=== PATIENT | male | born 2000 | race Caucasian/White ===

== ENCOUNTER 2020-09-11 01:09 | Emergency (ER) | payer OTHER ==
[2020-09-11 01:19] VITALS: RESP 18; TEMP 97.9
--- NOTE | 2020-09-11 01:36 | ED ---
General Adult HPI - General Chief complaint: Recheck/Abnormal Lab/Rx Stated complaint: SOB Time Seen by Provider: 09/11/20 01:21 Source: patient Mode of arrival: ambulatory Limitations: no limitations - History of Present Illness Initial comments: This patient is a 19-year-old man who presents to be evaluated for symptoms that is been going back for a couple of months. The patient states that he will have a feeling like he is falling though he is not. Also feeling somewhat lightheaded and anxious. At times he is convinced that he is not going to be able to breathe. The symptoms are intermittent but seem to be occurring more frequently. They sometimes come on after eating or after he does smoke marijuana, but he states the symptoms did not always produces symptoms. -: month(s) Consistency: intermittent Improves with: none Worsens with: eating, other Associated Symptoms: other Treatments Prior to Arrival: none - Related Data Allergies Allergy/AdvReac Type Severity Reaction Status Date / [facility] Allergy Unknown Verified 09/11/20 01:12 Review of Systems ROS Statement: Those systems with pertinent positive or pertinent negative responses have been documented in the HPI. ROS Other: All systems not noted in ROS Statement are negative. Constitutional: Denies: fever, chills, weakness Eyes: Denies: vision change Respiratory: Denies: cough, dyspnea, wheezes Cardiovascular: Denies: chest pain, palpitations, syncope Gastrointestinal: Denies: abdominal pain, nausea, vomiting Genitourinary: Denies: dysuria, hematuria Musculoskeletal: Denies: back pain Skin: Denies: rash Neurological: Reports: other. Denies: headache, weakness, numbness Psychiatric: Reports: anxiety Past Medical History Past Medical History: No Reported History History of Any Multi-Drug Resistant Organisms: None Reported Past Surgical History: No Surgical Hx Reported Past Psychological History: Anxiety, Depression Smoking Status: Current every day smoker Past Alcohol Use History: Occasional Past Drug Use History: Marijuana General Exam Limitations: no limitations General appearance: alert, in no apparent distress Head exam: Present: atraumatic, normocephalic, normal inspection Eye exam: Present: normal appearance. Absent: scleral icterus, conjunctival injection ENT exam: Present: normal oropharynx Neck exam: Present: normal inspection Respiratory exam: Present: normal lung sounds bilaterally. Absent: respiratory distress, wheezes, rales, rhonchi, stridor Cardiovascular Exam: Present: regular rate, normal rhythm, systolic murmur (2/6 KYLE). Absent: diastolic murmur, rubs, gallop GI/Abdominal exam: Present: soft. Absent: distended, tenderness, guarding, rebound, rigid, mass Extremities exam: Present: normal inspection, normal capillary refill. Absent: pedal edema, calf tenderness Back exam: Present: normal inspection Neurological exam: Present: alert, normal gait Psychiatric exam: Present: anxious. Absent: depressed, agitated, homicidal ideation, suicidal ideation Skin exam: Present: warm, dry, intact, normal color. Absent: rash Course Vital Signs 09/11/20 09/11/20 01:12 02:19 Temperature 97.9 F Pulse Rate 84 71 Respiratory 18 18 Rate Blood Pressure 130/70 137/83 O2 Sat by Pulse 98 96 Oximetry Medical Decision Making - Lab Data Result diagrams: 09/11/20 01:45 09/11/20 01:45 Lab Results 09/11/20 09/11/20 09/11/20 Range/Units 01:44 01:45 01:45 WBC 9.5 (4.0-11.0) k/uL RBC 4.79 (4.30-5.90) m/uL Hgb 15.7 (13.0-17.5) gm/dL Hct 43.6 (39.0-53.0) % MCV 90.9 (80.0-100.0) fL MCH 32.8 (25.0-35.0) pg MCHC 36.0 (31.0-37.0) g/dL RDW 12.3 (11.5-15.5) % Plt Count 201 (150-450) k/uL MPV 8.0 Neutrophils % 63 % Lymphocytes % 23 % Monocytes % 7 % Eosinophils % 5 % Basophils % 1 % Neutrophils # 6.0 (1.3-7.7) k/uL Lymphocytes # 2.2 (1.0-4.8) k/uL Monocytes # 0.7 (0-1.0) k/uL Eosinophils # 0.5 (0-0.7) k/uL Basophils # 0.1 (0-0.2) k/uL Sodium 139 (137-145) mmol/L Potassium 3.7 (3.5-5.1) mmol/L Chloride 102 (98-107) mmol/L Carbon Dioxide 28 (22-30) mmol/L Anion Gap 9 mmol/L BUN 16 (9-20) mg/dL Creatinine 0.76 (0.66-1.25) mg/dL Est GFR (CKD-EPI)AfAm >90 (>60 ml/min/1.73 sqM) Est GFR (CKD-EPI)NonAf >90 (>60 ml/min/1.73 sqM) Glucose 95 (74-99) mg/dL Calcium 9.4 (8.4-10.2) mg/dL Magnesium 2.1 (1.6-2.3) mg/dL Total Bilirubin 0.5 (0.2-1.3) mg/dL AST 36 (17-59) U/L ALT 44 (4-49) U/L Alkaline Phosphatase 79 (38-126) U/L Total Protein 7.4 (6.3-8.2) g/dL Albumin 4.5 (3.5-5.0) g/dL Urine Color Yellow Urine Appearance Clear (Clear) Urine pH 6.0 (5.0-8.0) Ur Specific [place] 1.033 (1.001-1.035) Urine Protein Trace H (Negative) Urine Glucose (UA) Negative (Negative) Urine Ketones Trace H (Negative) Urine Blood Negative (Negative) Urine Nitrite Negative (Negative) Urine Bilirubin Negative (Negative) Urine Urobilinogen 2.0 (<2.0) mg/dL Ur Leukocyte Esterase Negative (Negative) Urine Opiates Screen Not Detected (NotDetected) Ur Oxycodone Screen Not Detected (NotDetected) Urine Methadone Screen Not Detected (NotDetected) Ur Propoxyphene Screen Not Detected (NotDetected) Ur Barbiturates Screen Not Detected (NotDetected) U Tricyclic Antidepress Not Detected (NotDetected) Ur Phencyclidine Scrn Not Detected (NotDetected) Ur Amphetamines Screen Not Detected (NotDetected) U Methamphetamines Scrn Not Detected (NotDetected) U Benzodiazepines Scrn Not Detected (NotDetected) Urine Cocaine Screen Not Detected (NotDetected) U Marijuana (THC) Screen Detected H (NotDetected) Disposition Clinical Impression: Anxiety Disposition: HOME SELF-CARE Condition: Good Instructions (If sedation given, give patient instructions): Generalized Anxiety Disorder (ED) Additional Instructions: As we discussed, follow-up with with your physician to see about having an echocardiogram Is patient prescribed a controlled substance at d/c from ED?: No Referrals: None,Stated [Primary Care Provider] - 1-2 days Waqar Godwin [STAFF PHYSICIAN] - 1-2 days
[2020-09-11 02:11] LABS: Basophils # (A) 0.1 k/uL (0-0.2); Basophils % (A) 1 %; Eosinophils # (A) 0.5 k/uL (0-0.7); Eosinophils % (A) 5 %; HCT 43.6 % (39.0-53.0); HGB 15.7 gm/dL (13.0-17.5); Lymphocytes # (A) 2.2 k/uL (1.0-4.8); Lymphocytes % (A) 23 %; MCH 32.8 pg (25.0-35.0); MCV 90.9 fL (80.0-100.0); Monocytes # (A) 0.7 k/uL (0-1.0); Monocytes % (A) 7 %; Neutrophils % (A) 63 %; Platelet Count 201 k/uL (150-450); RBC 4.79 m/uL (4.30-5.90); RDW 12.3 % (11.5-15.5); WBC 9.5 k/uL (4.0-11.0)
[2020-09-11 02:24] LABS: ALT 44 U/L (4-49); African American GFR (CKD) >90 (>60 ml/min/1.73 sqM); Albumin 4.5 g/dL (3.5-5.0); Anion Gap 9 mmol/L; Blood Urea Nitrogen 16 mg/dL (9-20); Calcium 9.4 mg/dL (8.4-10.2); Carbon Dioxide 28 mmol/L (22-30); Chloride 102 mmol/L (98-107); Glucose 95 mg/dL (74-99); Non-African American GFR(CKD) >90 (>60 ml/min/1.73 sqM); Sodium 139 mmol/L (137-145); Total Bilirubin 0.5 mg/dL (0.2-1.3); Total Protein 7.4 g/dL (6.3-8.2)
[2020-09-11 02:27] LABS: AST 36 U/L (17-59); Alkaline Phosphatase 79 U/L (38-126); Magnesium 2.1 mg/dL (1.6-2.3); Potassium 3.7 mmol/L (3.5-5.1)
[2020-09-11 02:41] VITALS: BP 137/83; PULSE 71
[2020-09-11 02:49] LABS: Amphetamine Screen,Urine Not Detected (NotDetected); Barbiturate Screen,Urine Not Detected (NotDetected); Benzodiazepines Screen,Urine Not Detected (NotDetected); Cocaine Screen,Urine Not Detected (NotDetected); Methadone Screen, Urine Not Detected (NotDetected); Opiate Screen,Urine Not Detected (NotDetected); Oxycodone Screen, Urine Not Detected (NotDetected); Phencyclidine Screen,Urine Not Detected (NotDetected); Tricyclic Antidepressant,Urine Not Detected (NotDetected); Urn Cannabinoid Scrn Detected (NotDetected)
[2020-09-11 02:57] LABS: Appearance,Urine Clear (Clear); Bilirubin,Urine Negative (Negative); Blood,Urine Negative (Negative); Color,Urine Yellow; Glucose,Urine (UA) Negative (Negative); Ketones,Urine Trace (Negative); Leukocyte Esterase,Urine Negative (Negative); Nitrite,Urine Negative (Negative); Protein,Urine Trace (Negative); Specific Gravity,Urine 1.033 (1.001-1.035)
[2020-09-11] MEDS ORDERED: MAG HYDROX/AL HYDROX/SIMETH 30 ML, HYOSCYAMINE ELIXIR 10 ML, LIDOCAINE VISCOUS 2% 10 ML PO STA ×3 (03:20)
== END 2020-09-11 04:18 | disposition home or self-care (01) ==
LOC: EC 01:09
DX: F41.9 Anxiety disorder, unspecified (principal); F12.90 Cannabis use, unspecified, uncomplicated; F17.200 Nicotine dependence, unspecified, uncomplicated; Z88.8 Allergy status to other drugs, medicaments and biological substances
CPT/HCPCS: 36415; 80053; 80306; 81003; 83735; 85025; 99284

== ENCOUNTER 2020-09-26 | Emergency (ER) | payer OTHER | END 2020-09-26 04:00 | disposition left against medical advice (07) | CPT/HCPCS: 93005; 99499 ==

== ENCOUNTER 2020-10-01 14:52 | Emergency (ER) | payer OTHER ==
[2020-10-01 15:03] VITALS: TEMP 98.3
[2020-10-01 15:27] LABS: Glucose,Whole Blood 85 mg/dL (75-99)
--- NOTE | 2020-10-01 15:32 | ED ---
General Adult HPI - General Chief complaint: Dizziness Stated complaint: lightheaded/weakness Time Seen by Provider: 10/01/20 15:03 Source: patient Mode of arrival: ambulatory Limitations: no limitations - History of Present Illness Initial comments: 19-year-old male with a past medical history of asthma presents to the emergency room for a chief complaint of concern for diabetes. Patient states for several months he has been concerned that he has diabetes. States when he eats a lot of food at once he feels that his heart races. States that his mother told him that when he was born a digital not icteric in and thought he was predisposed to diabetes. 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 States that he wasnt feeling well at work and felt weak. He presented to the emergency room to be evaluated for bakari salcedo.patient denies excessive thirst, excessive urination. Patient has no other complaints at this time including shortness of breath, chest pain, abdominal pain, nausea or vomiting, headache, or visual changes. - Related Data Home Medications Medication Instructions Recorded Confirmed No Known Home Medications 09/26/20 09/26/20 Allergies Allergy/AdvReac Type Severity Reaction Status Date / Time cetirizine [From [facility]] Allergy Unknown Verified 10/01/20 15:02 Review of Systems ROS Statement: Those systems with pertinent positive or pertinent negative responses have been documented in the HPI. ROS Other: All systems not noted in ROS Statement are negative. Past Medical History Past Medical History: Asthma History of Any Multi-Drug Resistant Organisms: None Reported Past Surgical History: No Surgical Hx Reported Past Psychological History: Anxiety, Depression Smoking Status: Current every day smoker Past Alcohol Use History: Occasional Past Drug Use History: Marijuana General Exam Limitations: no limitations General appearance: alert, in no apparent distress Head exam: Present: atraumatic, normocephalic, normal inspection Eye exam: Present: normal appearance, PERRL, EOMI. Absent: scleral icterus, conjunctival injection, periorbital swelling ENT exam: Present: normal exam, mucous membranes moist Neck exam: Present: normal inspection. Absent: tenderness, meningismus, lymphadenopathy Respiratory exam: Present: normal lung sounds bilaterally. Absent: respiratory distress, wheezes, rales, rhonchi, stridor Cardiovascular Exam: Present: regular rate, normal rhythm, normal heart sounds. Absent: systolic murmur, diastolic murmur, rubs, gallop, clicks GI/Abdominal exam: Present: soft, normal bowel sounds. Absent: distended, tenderness, guarding, rebound, rigid Course Vital Signs 10/01/20 14:59 Temperature 98.3 F Pulse Rate 71 Respiratory 22 Rate Blood Pressure 132/76 O2 Sat by Pulse 95 Oximetry Medical Decision Making - Medical Decision Making Vitals are stable. Patient's blood sugar is 85. He is not tachypneic or tachycardic. I suspect patient felt weak today because it is 330 pm and he has not had anything substantial to eat and drank caffeine. Patient did feel better after eating a sandwich in the emergency room. Patient also reports he has been anxious. States that he thinks this could be contributing. He denies any suicidal or homicidal thoughts. I did give patient referrals to outpatient counselors he can talk to. I also gave him several primary care referrals. Discussed returning if he has any worsening symptoms. - Lab Data Lab Results 10/01/20 Range/Units 15:25 POC Glucose (mg/dL) 85 (75-99) mg/dL POC Glu Rocket Assembly Operator ID Venkatesh Calix Disposition Clinical Impression: Normal glucose level, Anxiety Disposition: HOME SELF-CARE Condition: Good Instructions (If sedation given, give patient instructions): Shopping for a Healthy Diet (ED), Generalized Anxiety Disorder (ED) Additional Instructions: Please follow up with primary care. Follow [facility] with [facility] for symptoms of anxiety as well. Return to the ER for any worsening symptoms. Is patient prescribed a controlled substance at d/c from ED?: No Referrals: Beverley Alonso MD [STAFF PHYSICIAN] - 1-2 days Fausto Rizzo III, MD [STAFF PHYSICIAN] - 1-2 days Vicky Lester MD [STAFF PHYSICIAN] - 1-2 days Benita Nassar DO [REFERRING] - 1-2 days Time of Disposition: 15:56
[2020-10-01 16:16] VITALS: BP 132/60; PULSE 77; RESP 20
== END 2020-10-01 16:16 | disposition home or self-care (01) ==
LOC: EC 14:52
DX: F41.9 Anxiety disorder, unspecified (principal); J45.909 Unspecified asthma, uncomplicated; F17.200 Nicotine dependence, unspecified, uncomplicated; F32.9 Major depressive disorder, single episode, unspecified
CPT/HCPCS: 36415; 99284

== ENCOUNTER 2020-10-31 22:33 | Emergency (ER) | payer OTHER ==
[2020-10-31 22:43] VITALS: BP 119/74; PULSE 84; RESP 18; TEMP 98.6
--- NOTE | 2020-10-31 23:39 | XR ---
EXAMINATION TYPE: XR chest 2V DATE OF EXAM: 10/31/2020 COMPARISON: NONE HISTORY: Chest pain TECHNIQUE: 2 views FINDINGS: Heart and mediastinum are normal. Lungs are clear. Diaphragm is normal. Bony thorax is inta ct. Pulmonary vascularity is normal. IMPRESSION: Normal chest. Normal heart.
[2020-11-01] MEDS ORDERED: hydrOXYzine pamoate 25 MG CAP PO STA (00:12)
--- NOTE | 2020-11-01 00:12 | ED ---
General Adult HPI - General Chief complaint: Chest Pain Stated complaint: chest pain, dizziness Time Seen by Provider: 10/31/20 22:44 Source: patient Mode of arrival: wheelchair Limitations: no limitations - History of Present Illness Initial comments: 19 year-old male patient presents to the emergency department for evaluation of chest tightness and dizziness. Patient states he has been having symptoms for months. States that he has been here a few times for similar symptoms and told it was possibly anxiety. He states that symptoms usually start at night. Denies any known exacerbating fractures. States he has not followed up for this because he cannot find a doctor to take his insurance. He denies any fainting. Denies family history of unexplained or at a young age without known cause. Denies any family history of heart problems. Denies alcohol or drug use. Denies nausea, vomiting, or diarrhea. Patient denies any recent rash, fever, chills, cough, abdominal pain, constipation, back pain, numbness, tingling, hematuria, dysuria, urinary urgency, urinary frequency, headache, visual changes, or any other complaints. - Related Data Previous Rx's Medication Instructions Recorded hydrOXYzine pamoate [Vistaril] 25 mg PO HS PRN #14 cap 11/01/20 Allergies Allergy/AdvReac Type Severity Reaction Status Date / [facility]ergy Unknown Verified 10/31/20 23:06 Review of Systems ROS Statement: Those systems with pertinent positive or pertinent negative responses have been documented in the HPI. ROS Other: All systems not noted in ROS Statement are negative. Past Medical History Past Medical History: Asthma History of Any Multi-Drug Resistant Organisms: None Reported Past Surgical History: No Surgical Hx Reported Past Psychological History: Anxiety, Depression Smoking Status: Current every day smoker, Vaper Past Alcohol Use History: Occasional Past Drug Use History: Marijuana General Exam Limitations: no limitations General appearance: alert, in no apparent distress, other Respiratory exam: Present: normal lung sounds bilaterally. Absent: respiratory distress, wheezes, rales, rhonchi, stridor Cardiovascular Exam: Present: regular rate, normal rhythm, normal heart sounds. Absent: systolic murmur, diastolic murmur, rubs, gallop, clicks GI/Abdominal exam: Present: soft, normal bowel sounds. Absent: distended, tenderness, guarding, rebound, rigid Neurological exam: Present: alert, oriented X3, CN II-XII intact Psychiatric exam: Present: normal affect, normal mood Skin exam: Present: warm, dry, intact, normal color. Absent: rash Course Vital Signs 10/31/20 22:40 Temperature 98.6 F Pulse Rate 84 Respiratory 18 Rate Blood Pressure 119/74 O2 Sat by Pulse 98 Oximetry EKG Findings - EKG Comments: EKG Findings:: EKG obtained at 2246 shows normal sinus rhythm with a ventricular rate of 82, AL interval 154, QRS duration 96, QT 374, QTC 436. No evidence of ST elevation or depression. Medical Decision Making - Medical Decision Making 19-year-old male patient presents to the emergency department today for evaluation of chest tightness and dizzy feeling. States he feels like his body is moving without actual moving. Physical examination is unremarkable. Lungs are clear to auscultation with good air movement. EKG was unremarkable. Chest x-ray negative. Patient has been worked up within the last couple of months for similar symptoms here. States he does feel this way every day. We'll try giving prescription for Vistaril to see this will help with symptoms. He is discharged with instructions to call his insurance come in after a list of providers to accept his insurance. Return parameters were discussed in detail. He verbalizes understanding and agree with this plan. Case discussed with my attending Dr. Vera. - Radiology Data Radiology results: report reviewed, image reviewed Normal chest. Normal heart. Disposition Clinical Impression: Chest pain Disposition: HOME SELF-CARE Condition: Good Instructions (If sedation given, give patient instructions): Chest Pain (ED) Additional Instructions: Call your insurance company to get a list of providers in the area that are covered by your insurance. Return to the emergency department for any new, worsening, or concerning symptoms. Prescriptions: hydrOXYzine pamoate [Vistaril] 25 mg PO HS PRN #14 cap PRN Reason: Anxiety Is patient prescribed a controlled substance at d/c from ED?: No Referrals: None,Stated [Primary Care Provider] - 1-2 days Time of Disposition: 00:12
== END 2020-11-01 00:37 | disposition home or self-care (01) ==
LOC: EC 22:33
DX: R07.9 Chest pain, unspecified (principal); J45.909 Unspecified asthma, uncomplicated; F17.200 Nicotine dependence, unspecified, uncomplicated; F32.9 Major depressive disorder, single episode, unspecified; F12.90 Cannabis use, unspecified, uncomplicated
CPT/HCPCS: 71046; 99285

== ENCOUNTER 2020-11-29 03:02 | Emergency (ER) | payer OTHER ==
[2020-11-29 03:11] VITALS: BP 128/82; PULSE 66; RESP 18; TEMP 98.4
[2020-11-29] MEDS ORDERED: KETOROLAC 15 MG/ML 1 ML VIAL IM STA (03:37)
[2020-11-29] MEDS ORDERED: diazePAM 5 MG TAB PO STA (03:37)
[2020-11-29] MEDS ORDERED: PROCHLORPERAZINE 5 MG TAB PO STA (03:37)
[2020-11-29] MEDS ORDERED: diphenhydrAMINE 25 MG CAP PO STA (03:37)
--- NOTE | 2020-11-29 03:38 | ED ---
Dizziness HPI - General Chief Complaint: Dizziness Stated Complaint: Dizziness, Anxiety Time Seen by Provider: 11/29/20 03:04 Source: patient Mode of arrival: ambulatory - Related Data Previous Rx's Medication Instructions Recorded hydrOXYzine pamoate [Vistaril] 25 mg PO HS PRN #14 cap 11/01/20 Allergies Allergy/AdvReac Type Severity Reaction Status Date / Time cetirizine [From [facility]] Allergy Unknown Verified 11/29/20 03:11 Review of Systems ROS Statement: Those systems with pertinent positive or pertinent negative responses have been documented in the HPI. ROS Other: All systems not noted in ROS Statement are negative. Past Medical History Past Medical History: Asthma History of Any Multi-Drug Resistant Organisms: None Reported Past Surgical History: No Surgical Hx Reported Past Psychological History: Anxiety, Depression Smoking Status: Current every day smoker, Vaper Past Alcohol Use History: Occasional Past Drug Use History: Marijuana Course Vital Signs 11/29/20 03:07 Temperature 98.4 F Pulse Rate 66 Respiratory 18 Rate Blood Pressure 128/82 O2 Sat by Pulse 98 Oximetry Disposition Clinical Impression: Headache, Chest pain, Acute anxiety, Dizziness Disposition: HOME SELF-CARE Condition: Good Instructions (If sedation given, give patient instructions): Dizziness (ED) Is patient prescribed a controlled substance at d/c from ED?: No Referrals: None,Stated [Primary Care Provider] - 1-2 days
== END 2020-11-29 04:19 | disposition home or self-care (01) ==
LOC: EC 03:02
DX: F41.9 Anxiety disorder, unspecified (principal); R42 Dizziness and giddiness; R07.9 Chest pain, unspecified; R51.9 Headache, unspecified; J45.909 Unspecified asthma, uncomplicated; F32.9 Major depressive disorder, single episode, unspecified; F17.200 Nicotine dependence, unspecified, uncomplicated; F12.90 Cannabis use, unspecified, uncomplicated; Z79.899 Other long term (current) drug therapy
CPT/HCPCS: 99283; S0183

== ENCOUNTER 2020-12-25 23:25 | Emergency (ER) | payer OTHER ==
[2020-12-25 23:35] VITALS: RESP 18
--- NOTE | 2020-12-26 00:38 | ED ---
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 Fall Witnessed: no Place Fall Occurred: home Loss of Consciousness: none Prolonged Down Time?: no Symptoms Prior to Fall: none Location: head Severity: moderate Severity scale (1-10): 4 Quality: dull, aching Context: tripped/slipped Associated Symptoms: denies - Related Data Previous Rx's Medication Instructions Recorded hydrOXYzine pamoate [Vistaril] 25 mg PO HS PRN #14 cap 11/01/20 Allergies Allergy/AdvReac Type Severity Reaction Status Date / Time cetirizine [From [facility]] Allergy Unknown Verified 12/25/20 23:35 Review of Systems ROS Statement: Those systems with pertinent positive or pertinent negative responses have been documented in the HPI. ROS Other: All systems not noted in ROS Statement are negative. Past Medical History Past Medical History: Asthma History of Any Multi-Drug Resistant Organisms: None Reported Past Surgical History: No Surgical Hx Reported Past Psychological History: Anxiety, Depression Smoking Status: Current every day smoker Past Alcohol Use History: Occasional Past Drug Use History: Marijuana General Exam Limitations: no limitations General appearance: alert, in no apparent distress Head exam: Present: atraumatic, normocephalic, normal inspection Eye exam: Present: normal appearance, PERRL, EOMI. Absent: scleral icterus, conjunctival injection, periorbital swelling ENT exam: Present: normal exam, mucous membranes moist Neck exam: Present: normal inspection. Absent: tenderness, meningismus, lymphadenopathy Respiratory exam: Present: normal lung sounds bilaterally. Absent: respiratory distress, wheezes, rales, rhonchi, stridor Cardiovascular Exam: Present: regular rate, normal rhythm, normal heart sounds. Absent: systolic murmur, diastolic murmur, rubs, gallop, clicks GI/Abdominal exam: Present: soft, normal bowel sounds. Absent: distended, tenderness, guarding, rebound, rigid Extremities exam: Present: normal inspection, full ROM, normal capillary refill. Absent: tenderness, pedal edema, joint swelling, calf tenderness Back exam: Present: normal inspection Neurological exam: Present: alert, oriented X3, CN II-XII intact Psychiatric exam: Present: normal affect, normal mood Skin exam: Present: warm, dry, intact, normal color. Absent: rash Course Vital Signs 12/25/20 23:32 Temperature 98.2 F Pulse Rate 82 Respiratory 18 Rate Blood Pressure 136/77 O2 Sat by Pulse 98 Oximetry - Reevaluation(s) Reevaluation #1: 12/26/20 01:34 Medical record is reviewed Reevaluation #2: 12/26/20 01:34 Patient is in no acute distress Reevaluation #3: 12/26/20 01:34 Reassessed with no persistent nausea vomiting, no neurological deficits Medical Decision Making - Medical Decision Making 20-year-old male DEL with fall with head injury, contusion, minor concussion. Patient can be discharged home - Radiology Data Radiology results: report reviewed (CT brain is negative for acute disease), image reviewed Disposition Clinical Impression: Headache, Closed head injury, Concussion without loss of consciousness, Fall Disposition: HOME SELF-CARE Condition: Good Instructions (If sedation given, give patient instructions): Concussion (ED) Is patient prescribed a controlled substance at d/c from ED?: No Referrals: None,Stated [Primary Care Provider] - 1-2 days
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
[2020-12-26 02:03] VITALS: BP 135/77; PULSE 79; TEMP 98.1
== END 2020-12-26 02:02 | disposition home or self-care (01) ==
LOC: EC 23:25
DX: S06.0X0A Concussion without loss of consciousness, initial encounter (principal); J45.909 Unspecified asthma, uncomplicated; F32.9 Major depressive disorder, single episode, unspecified; F41.9 Anxiety disorder, unspecified; F12.90 Cannabis use, unspecified, uncomplicated; F17.200 Nicotine dependence, unspecified, uncomplicated; W01.198A Fall on same level from slipping, tripping and stumbling with subsequent striking against other object, initial encounter; Y92.009 Unspecified place in unspecified non-institutional (private) residence as the place of occurrence of the external cause
CPT/HCPCS: 70450; 72125; 99284

== ENCOUNTER 2021-02-09 05:01 | Emergency (ER) | payer OTHER ==
--- NOTE | 2021-02-09 05:21 | ED ---
Anxiety HPI - General Chief Complaint: Anxiety Stated Complaint: Anxiety Time Seen by Provider: 02/09/21 05:03 Source: patient, RN notes reviewed, old records reviewed Mode of arrival: ambulatory - History of Present Illness Initial Comments: This is a 20-year-old male to the ER for management of his anxiety severe anxiety. History of anxiety. Patient has no significant stressor denies drugs or alcohol but feels significant inability to control is racing thoughts in his mind currently. Very agitated, shaking and anxious. Not homicidal or suicidal MD Complaint: anxiety -: hour(s) Symptoms: dyspnea, chest pain, palpitations, perioral numbness/tingling, sense of impending doom Place: home Previous History of Same: Yes Severity: moderate Quality: similar to prior episodes Provoking factors: none known Improves With: nothing Worsens With: nothing Associated symptoms: other (none) - Related Data Home Medications: Previous Rx's Medication Instructions Recorded hydrOXYzine pamoate [Vistaril] 25 mg PO HS PRN #14 cap 11/01/20 Diazepam [Valium] 5 mg PO Q8H PRN 3 Days #9 tab 02/09/21 Allergies/Adverse Reactions: Allergies Allergy/AdvReac Type Severity Reaction Status Date / Time cetirizine [From Zyrtec] Allergy Unknown Verified 02/09/21 05:11 Review of Systems ROS Statement: Those systems with pertinent positive or pertinent negative responses have been documented in the HPI. ROS Other: All systems not noted in ROS Statement are negative. Past Medical History Past Medical History: Asthma Additional Past Medical History / Comment(s): anxiety History of Any Multi-Drug Resistant Organisms: None Reported Past Surgical History: No Surgical Hx Reported Past Psychological History: Anxiety, Depression Smoking Status: Current every day smoker Past Alcohol Use History: Occasional Past Drug Use History: Marijuana General Exam General appearance: alert, in no apparent distress Head exam: Present: atraumatic, normocephalic, normal inspection Eye exam: Present: normal appearance, PERRL, EOMI. Absent: scleral icterus, conjunctival injection, periorbital swelling ENT exam: Present: normal exam, mucous membranes moist Neck exam: Present: normal inspection. Absent: tenderness, meningismus, lymphadenopathy Respiratory exam: Present: normal lung sounds bilaterally. Absent: respiratory distress, wheezes, rales, rhonchi, stridor Cardiovascular Exam: Present: regular rate, normal rhythm, normal heart sounds. Absent: systolic murmur, diastolic murmur, rubs, gallop, clicks GI/Abdominal exam: Present: soft, normal bowel sounds. Absent: distended, tenderness, guarding, rebound, rigid Extremities exam: Present: normal inspection, full ROM, normal capillary refill. Absent: tenderness, pedal edema, joint swelling, calf tenderness Back exam: Present: normal inspection Neurological exam: Present: alert, oriented X3, CN II-XII intact Psychiatric exam: Present: normal affect, normal mood Skin exam: Present: warm, dry, intact, normal color. Absent: rash Course Vital Signs 02/09/21 02/09/21 05:08 05:28 Temperature 98.2 F 98.4 F Pulse Rate 82 80 Respiratory 22 20 Rate Blood Pressure 133/74 147/76 O2 Sat by Pulse 98 97 Oximetry - Reevaluation(s) Reevaluation #1: 02/09/21 05:39 Medical record is reviewed Reevaluation #2: 02/09/21 05:39 Symptoms are strictly improved, patient feels better Reevaluation #3: 02/09/21 05:39 Patient informed results and feels comfortable for discharge home Medical Decision Making - Medical Decision Making 20 male to the emergency department for evaluation patient be discharged home to follow-up with primary care Disposition Clinical Impression: Acute anxiety, Panic attack Disposition: HOME SELF-CARE Condition: Good Instructions (If sedation given, give patient instructions): Generalized Anxiety Disorder (ED) Prescriptions: Diazepam [Valium] 5 mg PO Q8H PRN 3 Days #9 tab PRN Reason: Anxiety Is patient prescribed a controlled substance at d/c from ED?: No Referrals: None,Stated [Primary Care Provider] - 1-2 days
[2021-02-09 05:33] VITALS: BP 147/76; PULSE 80; RESP 20; TEMP 98.4
[2021-02-09] MEDS ORDERED: diazePAM 5 MG TAB PO STA (05:35)
--- NOTE | 2021-02-09 05:41 | ED ---
Medical Decision Making - Medical Decision Making addendum for follow up PCP Disposition Clinical Impression: Acute anxiety, Panic attack Disposition: HOME SELF-CARE Condition: Good Instructions (If sedation given, give patient instructions): Generalized Anxiety Disorder (ED) Prescriptions: Diazepam [Valium] 5 mg PO Q8H PRN 3 Days #9 tab PRN Reason: Anxiety Is patient prescribed a controlled substance at d/c from ED?: Yes When asked, does pt state using other controlled substances?: No If prescribed controlled substance>3 days was MAPS reviewed?: Prescribed <3 Days If opioid is for acute pain is fill amount 7 days or less?: No If Rx opioid, was Start Talking consent form obtained?: No Referrals: Wu Esquivel MD [STAFF PHYSICIAN] - 1-2 days Kike Huynh MD [Medical Doctor] - 1-2 days
== END 2021-02-09 05:54 | disposition home or self-care (01) ==
LOC: EC 05:01
DX: F41.0 Panic disorder [episodic paroxysmal anxiety] (principal); F17.200 Nicotine dependence, unspecified, uncomplicated; J45.909 Unspecified asthma, uncomplicated; Z88.8 Allergy status to other drugs, medicaments and biological substances
CPT/HCPCS: 99284

== ENCOUNTER 2021-02-18 04:06 | Emergency (ER) | payer OTHER ==
[2021-02-18 04:14] VITALS: RESP 18; TEMP 98
[2021-02-18] MEDS ORDERED: ONDANSETRON 4 MG/2 ML VIAL IVP STA (04:28)
[2021-02-18] MEDS ORDERED: SODIUM CHLORIDE 0.9% 500 ML 500 ML IV STA (04:28)
[2021-02-18] MEDS ORDERED: LORazepam 2 MG/ML INJ IV STA (04:29)
--- NOTE | 2021-02-18 04:30 | ED ---
Anxiety HPI - General Chief Complaint: Arrhythmia/Palpitations Stated Complaint: Arrhythmia Time Seen by Provider: 02/18/21 04:11 Source: patient, RN notes reviewed, old records reviewed Mode of arrival: ambulatory - History of Present Illness Initial Comments: This is a [id number] male to the ER for evaluation of palpitations elevated heart rate. This anxiety. Patient has history of anxiety. No travel history no sick contacts no fevers does admit to marijuana use. Patient states his heart rate feels improved currently MD Complaint: anxiety, heart racing -: hour(s) Symptoms: dyspnea, chest pain, palpitations Place: home Previous History of Same: Yes Severity: moderate Quality: intermittent Provoking factors: none known Worsens With: nothing Associated symptoms: chest pain, shortness of breath, palpitations - Related Data Home Medications: Previous Rx's Medication Instructions Recorded hydrOXYzine pamoate [Vistaril] 25 mg PO HS PRN #14 cap 11/01/20 Diazepam [Valium] 5 mg PO Q8H PRN 3 Days #9 tab 02/09/21 Allergies/Adverse Reactions: Allergies Allergy/AdvReac Type Severity Reaction Status Date / Time cetirizine [From Zyrte] Allergy Unknown Verified 02/18/21 04:14 Review of Systems ROS Statement: Those systems with pertinent positive or pertinent negative responses have been documented in the HPI. ROS Other: All systems not noted in ROS Statement are negative. Past Medical History Past Medical History: Asthma Additional Past Medical History / Comment(s): anxiety History of Any Multi-Drug Resistant Organisms: None Reported Past Surgical History: No Surgical Hx Reported Past Psychological History: Anxiety, Depression Smoking Status: Current every day smoker Past Alcohol Use History: Occasional Past Drug Use History: Marijuana General Exam Limitations: no limitations General appearance: anxious Head exam: Present: atraumatic, normocephalic, normal inspection Eye exam: Present: normal appearance, PERRL, EOMI. Absent: scleral icterus, conjunctival injection, periorbital swelling ENT exam: Present: normal exam, mucous membranes moist Neck exam: Present: normal inspection. Absent: tenderness, meningismus, lymphadenopathy Respiratory exam: Present: normal lung sounds bilaterally. Absent: respiratory distress, wheezes, rales, rhonchi, stridor Cardiovascular Exam: Present: regular rate, normal rhythm, normal heart sounds. Absent: systolic murmur, diastolic murmur, rubs, gallop, clicks GI/Abdominal exam: Present: soft, normal bowel sounds. Absent: distended, tenderness, guarding, rebound, rigid Extremities exam: Present: normal inspection, full ROM, normal capillary refill. Absent: tenderness, pedal edema, joint swelling, calf tenderness Back exam: Present: normal inspection Neurological exam: Present: alert, oriented X3, CN II-XII intact Psychiatric exam: Present: normal affect, normal mood Skin exam: Present: warm, dry, intact, normal color. Absent: rash Course Vital Signs 02/18/21 02/18/21 04:11 06:37 Temperature 98.0 F Pulse Rate 71 84 Respiratory 18 18 Rate Blood Pressure 111/66 121/64 O2 Sat by Pulse 98 97 Oximetry - Reevaluation(s) Reevaluation #1: Medical record is reviewed Patient symptoms improved here in the ER Patient informed results and questions answered Patient is in no acute distress Medical Decision Making - Medical Decision Making 20 male D to the emergency department EL with anxiety-induced palpitations and tachycardia. Symptoms resolved here in the ER, no distress patient can be discharged home - Lab Data Result diagrams: 02/18/21 05:26 02/18/21 05:26 Lab Results 02/18/21 02/18/21 02/18/21 Range/Units 05:26 05:26 05:26 WBC 8.4 (4.0-11.0) k/uL RBC 5.09 (4.30-5.90) m/uL Hgb 16.2 (13.0-17.5) gm/dL Hct 45.5 (39.0-53.0) % MCV 89.4 (80.0-100.0) fL MCH 31.8 (25.0-35.0) pg MCHC 35.6 (31.0-37.0) g/dL RDW 11.9 (11.5-15.5) % Plt Count 232 (150-450) k/uL MPV 7.9 Neutrophils % 58 % Lymphocytes % 29 % Monocytes % 6 % Eosinophils % 6 % Basophils % 0 % Neutrophils # 4.9 (1.3-7.7) k/uL Lymphocytes # 2.4 (1.0-4.8) k/uL Monocytes # 0.5 (0-1.0) k/uL Eosinophils # 0.5 (0-0.7) k/uL Basophils # 0.0 (0-0.2) k/uL PT 10.3 (9.0-12.0) sec INR 1.0 (<1.2) APTT 24.6 (22.0-30.0) sec D-Dimer <0.17 (<0.60) mg/L FEU Sodium 141 (137-145) mmol/L Potassium 4.1 (3.5-5.1) mmol/L Chloride 104 (98-107) mmol/L Carbon Dioxide 26 (22-30) mmol/L Anion Gap 11 mmol/L BUN 15 (9-20) mg/dL Creatinine 0.79 (0.66-1.25) mg/dL Est GFR (CKD-EPI)AfAm >90 (>60 ml/min/1.73 sqM) Est GFR (CKD-EPI)NonAf >90 (>60 ml/min/1.73 sqM) Glucose 98 (74-99) mg/dL Calcium 10.1 (8.4-10.2) mg/dL Phosphorus 3.9 (2.5-4.5) mg/dL Magnesium 2.0 (1.6-2.3) mg/dL Total Bilirubin 0.7 (0.2-1.3) mg/dL AST 30 (17-59) U/L ALT 34 (4-49) U/L Alkaline Phosphatase 82 (38-126) U/L Troponin I (0.000-0.034) ng/mL NT-Pro-B Natriuret Pep pg/mL Total Protein 7.2 (6.3-8.2) g/dL Albumin 4.3 (3.5-5.0) g/dL TSH 0.800 (0.465-4.680) mIU/L 02/18/21 02/18/21 Range/Units 05:26 05:26 WBC (4.0-11.0) k/uL RBC (4.30-5.90) m/uL Hgb (13.0-17.5) gm/dL Hct (39.0-53.0) % MCV (80.0-100.0) fL MCH (25.0-35.0) pg MCHC (31.0-37.0) g/dL RDW (11.5-15.5) % Plt Count (150-450) k/uL MPV Neutrophils % % Lymphocytes % % Monocytes % % Eosinophils % % Basophils % % Neutrophils # (1.3-7.7) k/uL Lymphocytes # (1.0-4.8) k/uL Monocytes # (0-1.0) k/uL Eosinophils # (0-0.7) k/uL Basophils # (0-0.2) k/uL PT (9.0-12.0) sec INR (<1.2) APTT (22.0-30.0) sec D-Dimer (<0.60) mg/L FEU Sodium (137-145) mmol/L Potassium (3.5-5.1) mmol/L Chloride (98-107) mmol/L Carbon Dioxide (22-30) mmol/L Anion Gap mmol/L BUN (9-20) mg/dL Creatinine (0.66-1.25) mg/dL Est GFR (CKD-EPI)AfAm (>60 ml/min/1.73 sqM) Est GFR (CKD-EPI)NonAf (>60 ml/min/1.73 sqM) Glucose (74-99) mg/dL Calcium (8.4-10.2) mg/dL Phosphorus (2.5-4.5) mg/dL Magnesium (1.6-2.3) mg/dL Total Bilirubin (0.2-1.3) mg/dL AST (17-59) U/L ALT (4-49) U/L Alkaline Phosphatase (38-126) U/L Troponin I <0.012 (0.000-0.034) ng/mL NT-Pro-B Natriuret Pep 23 pg/mL Total Protein (6.3-8.2) g/dL Albumin (3.5-5.0) g/dL TSH (0.465-4.680) mIU/L - EKG Data -: EKG Interpreted by Me (EKG shows sinus rhythm 63 OR 158 QRS 90 QTC 413) - Radiology Data Radiology results: report reviewed (Chest x-rays negative for acute disease), image reviewed Disposition Clinical Impression: Acute anxiety, Palpitations Disposition: HOME SELF-CARE Condition: Good Instructions (If sedation given, give patient instructions): Heart Palpitations (ED) Is patient prescribed a controlled substance at d/c from ED?: No Referrals: None,Stated [Primary Care Provider] - 1-2 days
--- NOTE | 2021-02-18 04:52 | XR ---
EXAMINATION TYPE: XR chest 2V DATE OF EXAM: 02/18/2021 COMPARISON: 10/31/2020 HISTORY: Weakness TECHNIQUE: 2 views FINDINGS: Heart and mediastinum are normal. Lungs are clear. Diaphragm is normal. Bony thorax is inta ct. Pulmonary vascularity is normal. IMPRESSION: Normal chest. No change.
[2021-02-18 05:42] LABS: Basophils % (A) 0 %; Eosinophils # (A) 0.5 k/uL (0-0.7); Eosinophils % (A) 6 %; HCT 45.5 % (39.0-53.0); HGB 16.2 gm/dL (13.0-17.5); Lymphocytes # (A) 2.4 k/uL (1.0-4.8); Lymphocytes % (A) 29 %; MCH 31.8 pg (25.0-35.0); MCHC 35.6 g/dL (31.0-37.0); MCV 89.4 fL (80.0-100.0); Mean Platelet Volume 7.9; Monocytes # (A) 0.5 k/uL (0-1.0); Monocytes % (A) 6 %; Neutrophils # (A) 4.9 k/uL (1.3-7.7); Neutrophils % (A) 58 %; Platelet Count 232 k/uL (150-450); RBC 5.09 m/uL (4.30-5.90); RDW 11.9 % (11.5-15.5); WBC 8.4 k/uL (4.0-11.0)
[2021-02-18 05:59] LABS: ALT 34 U/L (4-49); AST 30 U/L (17-59); African American GFR (CKD) >90 (>60 ml/min/1.73 sqM); Albumin 4.3 g/dL (3.5-5.0); Alkaline Phosphatase 82 U/L (38-126); Anion Gap 11 mmol/L; Blood Urea Nitrogen 15 mg/dL (9-20); Calcium 10.1 mg/dL (8.4-10.2); Carbon Dioxide 26 mmol/L (22-30); Chloride 104 mmol/L (98-107); Glucose 98 mg/dL (74-99); Non-African American GFR(CKD) >90 (>60 ml/min/1.73 sqM); Phosphorus 3.9 mg/dL (2.5-4.5); Potassium 4.1 mmol/L (3.5-5.1); Sodium 141 mmol/L (137-145); Total Bilirubin 0.7 mg/dL (0.2-1.3); Total Protein 7.2 g/dL (6.3-8.2)
[2021-02-18 06:04] LABS: Partial Thromboplastin Time 24.6 sec (22.0-30.0); Prothrombin Time 10.3 sec (9.0-12.0)
[2021-02-18 06:40] VITALS: BP 121/64; PULSE 84
== END 2021-02-18 06:40 | disposition home or self-care (01) ==
LOC: EC 04:06
DX: R00.2 Palpitations (principal); R07.9 Chest pain, unspecified; R06.02 Shortness of breath; R00.0 Tachycardia, unspecified; J45.909 Unspecified asthma, uncomplicated; F41.9 Anxiety disorder, unspecified; F17.200 Nicotine dependence, unspecified, uncomplicated
CPT/HCPCS: 93005; 85379; 83880; 80053; 83735; 84100; 84443; 84484; 85025; 85610; 85730; 71046; 99285; 96374; 96375; 96361; J2060; J2405

== ENCOUNTER 2021-07-11 18:34 | Emergency (ER) | payer OTHER ==
[2021-07-11 18:40] VITALS: BP 128/67; PULSE 68; RESP 18; TEMP 98.4
[2021-07-11] MEDS ORDERED: LORazepam 1 MG TAB PO STA (18:56)
--- NOTE | 2021-07-11 19:18 | ED ---
Anxiety HPI - General Chief Complaint: Anxiety Stated Complaint: Mental Health Time Seen by Provider: 07/11/21 18:44 Source: patient, RN notes reviewed Mode of arrival: ambulatory - History of Present Illness Initial Comments: This is a pleasant 20-year-old male with a history of anxiety and depression. Patient states he's been here several times since August of last year for similar symptomology. He states it feels like he gets a strange feeling in his chest and has racing heartbeat. He then gets strange feeling in both hands. Patient states she previously been diagnosed with anxiety/panic attacks. Patient previously was treated with antidepressants in the form of Cymbalta. However due to insurance reasons he's been unable to obtain a regular physician here. No headache, no fever or chills, no changes in vision or hearing, no sore throat or difficulty with speech, no neck pain, no shortness of breath, no abdominal pain, no nausea or vomiting, no changes in urination or bowel movements, no numbness or tingling, no extremity pain, no skin rashes or lesions. MD Complaint: anxiety - Related Data Home Medications: Previous Rx's Medication Instructions Recorded busPIRone HCl [Buspar] 10 mg PO Q12H PRN #15 tab 07/11/21 Allergies/Adverse Reactions: Allergies Allergy/AdvReac Type Severity Reaction Status Date / Time cetirizine [From [facility]] Allergy Unknown Verified 07/11/21 19:09 Review of Systems ROS Statement: Those systems with pertinent positive or pertinent negative responses have been documented in the HPI. ROS Other: All systems not noted in ROS Statement are negative. Past Medical History Past Medical History: Asthma Additional Past Medical History / Comment(s): anxiety History of Any Multi-Drug Resistant Organisms: None Reported Past Surgical History: No Surgical Hx Reported Past Psychological History: Anxiety, Depression Smoking Status: Current every day smoker Past Alcohol Use History: Occasional Past Drug Use History: Marijuana General Exam - General Exam Comments Initial Comments: Patient appears to be mildly anxious but not toxic. Does not appear to be ill. Limitations: no limitations General appearance: alert, in no apparent distress Head exam: Present: atraumatic, normocephalic, normal inspection Eye exam: Present: normal appearance, PERRL, EOMI. Absent: scleral icterus, conjunctival injection, periorbital swelling ENT exam: Present: normal exam, mucous membranes moist Neck exam: Present: normal inspection. Absent: tenderness, meningismus, lymphadenopathy Respiratory exam: Present: normal lung sounds bilaterally. Absent: respiratory distress, wheezes, rales, rhonchi, stridor Cardiovascular Exam: Present: regular rate, normal rhythm, normal heart sounds. Absent: systolic murmur, diastolic murmur, rubs, gallop, clicks GI/Abdominal exam: Present: soft, normal bowel sounds. Absent: distended, tende rness, guarding, rebound, rigid Extremities exam: Present: normal inspection, full ROM, normal capillary refill. Absent: tenderness, pedal edema, joint swelling, calf tenderness Back exam: Present: normal inspection Neurological exam: Present: alert, oriented X3, CN II-XII intact Psychiatric exam: Present: normal affect, anxious. Absent: depressed, agitated, flat affect, manic, homicidal ideation, suicidal ideation Skin exam: Present: warm, dry, intact, normal color. Absent: rash Course Vital Signs 07/11/21 18:38 Temperature 98.4 F Pulse Rate 68 Respiratory 18 Rate Blood Pressure 128/67 O2 Sat by Pulse 96 Oximetry Medical Decision Making - Medical Decision Making Patient presented with recurrent anxiety. Patient denies any suicidal or homicidal ideation. We'll treat with anxiolytics short course of outpatient anxiolytics. We'll have the patient follow-up with on-call family practice physician. I did tell the patient to call his insurance company to see the nearest primary care physician that will except as insurance. Patient voices understanding. Patient was told to return to the ER for any signs or symptoms worsen. Told to return immediately if any other problems arise. All questions answered. Treatment plan discussed. Patient in agreement - EKG Data EKG Comments: EKG done at 1908 and read by the ED attending physician reveals normal sinus rhythm with a rate of 65. No acute changes. Normal intervals. Normal axis. Disposition Clinical Impression: Panic attack, Acute anxiety Disposition: HOME SELF-CARE Condition: Good Instructions (If sedation given, give patient instructions): Generalized Anxiety Disorder (ED) Additional Instructions: Patient call your insurance company and try to find a primary care physician that we'll take your insurance. He can try the physician that I have provided for review as well. Follow-up with your regular physician as directed. Return to the ER immediately if any symptoms worsen, new symptoms arise, or any other problems develop. Prescriptions: busPIRone HCl [Buspar] 10 mg PO Q12H PRN #15 tab PRN Reason: Anxiety Is patient prescribed a controlled substance at d/c from ED?: No Referrals: Waqar Godwin [STAFF PHYSICIAN] - 1-2 days Time of Disposition: 19:17
== END 2021-07-11 19:54 | disposition home or self-care (01) ==
LOC: EC 18:34
DX: F41.0 Panic disorder [episodic paroxysmal anxiety] (principal); F32.A Depression, unspecified; F17.200 Nicotine dependence, unspecified, uncomplicated; F12.90 Cannabis use, unspecified, uncomplicated; Z79.899 Other long term (current) drug therapy
CPT/HCPCS: 93005; 99283

== ENCOUNTER 2021-07-18 | Emergency (ER) | payer OTHER ==
[2021-07-18 00:05] VITALS: BP 140/88; PULSE 60; RESP 16; TEMP 98.1
--- NOTE | 2021-07-18 00:40 | ED ---
Chest Pain HPI - General Chief Complaint: Chest Pain Stated Complaint: Chest Pain Time Seen by Provider: 07/18/21 00:10 Source: patient, RN notes reviewed Mode of arrival: ambulatory Limitations: no limitations - History of Present Illness Initial Comments: This is a pleasant 20-year-old male with a history of anxiety and recurrent chest discomfort. Patient presents to the emergency department today stating that he tested positive for COVID-19 last Friday. He started getting chest discomfort yesterday. He states the chest discomfort is different from his usual anxiety attacks. Patient has had a cough which is nonproductive. Patient also stated he had a fever a few days ago. Patient does have a history of asthma. He does smoke cigarettes. No other illicit drug abuse. No headache, no fever or chills, no changes in vision or hearing, no sore throat or difficulty with speech, no neck pain, no chest pain or shortness of breath, no abdominal pain, no nausea or vomiting, no changes in urination or bowel movements, no numbness or tingling, no extremity pain, no skin rashes or lesions. MD Complaint: chest pain - Related Data Previous Rx's Medication Instructions Recorded busPIRone HCl [Buspar] 10 mg PO Q12H PRN #15 tab 07/11/21 Acetaminophen [Tylenol] 500 mg PO Q4-6H PRN #24 tab 07/18/21 Naproxen [Naprosyn] 375 mg PO Q12HR PRN #20 tablet 07/18/21 Allergies Allergy/AdvReac Type Severity Reaction Status Date / Time cetirizine [From Zyrtec] Allergy Unknown Verified 07/18/21 00:05 Review of Systems ROS Statement: Those systems with pertinent positive or pertinent negative responses have been documented in the HPI. ROS Other: All systems not noted in ROS Statement are negative. EKG Findings - EKG Results: EKG: interpreted by ERMD, sinus rhythm, normal axis, normal QRS, normal ST/T, no acute changes (Rate 67, sinus arrhythmia) EKG shows: sinus rhythm Past Medical History Past Medical History: Asthma Additional Past Medical History / Comment(s): anxiety History of Any Multi-Drug Resistant Organisms: None Reported Past Surgical History: No Surgical Hx Reported Past Psychological History: Anxiety, Depression Smoking Status: Current every day smoker Past Alcohol Use History: Occasional Past Drug Use History: Marijuana General Exam Limitations: no limitations General appearance: alert, in no apparent distress Head exam: Present: atraumatic, normocephalic, normal inspection Eye exam: Present: normal appearance, PERRL, EOMI. Absent: scleral icterus, conjunctival injection, periorbital swelling ENT exam: Present: normal exam, mucous membranes moist Neck exam: Present: normal inspection, full ROM. Absent: tenderness, meningismus, lymphadenopathy Respiratory exam: Present: normal lung sounds bilaterally, chest wall tenderness. Absent: respiratory distress, wheezes, rales, rhonchi, stridor, accessory muscle use Cardiovascular Exam: Present: regular rate, normal rhythm, normal heart sounds. Absent: systolic murmur, diastolic murmur, rubs, gallop, clicks GI/Abdominal exam: Present: soft, normal bowel sounds. Absent: distended, tenderness, guarding, rebound, rigid Extremities exam: Present: normal inspection, full ROM, normal capillary refill. Absent: tenderness, pedal edema, joint swelling, calf tenderness Back exam: Present: normal inspection Neurological exam: Present: alert, oriented X3, CN II-XII intact Psychiatric exam: Present: normal affect, normal mood Skin exam: Present: warm, dry, intact, normal color. Absent: rash Course Vital Signs 07/18/21 00:02 Temperature 98.1 F Pulse Rate 60 Respiratory 16 Rate Blood Pressure 140/88 O2 Sat by Pulse 99 Oximetry - Reevaluation(s) Reevaluation #1: 07/18/21 01:57 Medical record is reviewed Symptoms are improved here in the emergency department Patient is informed of results and questions answered Patient in no distress Chest Pain MDM - MDM Suspected the patient symptomology is related to COVID-19. Patient PERC is 0. The patient's age and EKG findings, patient's heart score is 0. Given the patient's age, I believe cardiac etiology is unlikely. Although the patient recently had COVID-19, myocarditis is within the differential. We'll obtain cardiac enzymes plus a CK. Given the patient's vital signs, pulmonary embolism unlikely. We'll run a d-dimer due to the hypercoagulability of COVID-19 patients. More consistent with musculoskeletal chest syndrome and anxiety related symptoms. Less likely to be secondary pneumonia The case was discussed in detail with ED attending physician. Presentation, findings, treatment plan discussed in detail. Discussed smoking cessation Follow-up with your regular physician as directed. Return to the ER immediately if any symptoms worsen, new symptoms arise, or any other problems develop. Disposition Clinical Impression: Acute chest wall pain, COVID-19, Acute anxiety, Cigarette smoker Disposition: HOME SELF-CARE Condition: Good Instructions (If sedation given, give patient instructions): Coronavirus Disease 2019 (COVID-19), Chest Wall Pain (ED), Anxiety (ED), How to Stop Smoking (ED) Additional Instructions: Follow-up with your regular physician as directed. Return to the ER immediately if any symptoms worsen, new symptoms arise, or any other problems develop. SELF QUARANTINE DISCHARGE: As you are at risk for symptoms due to coronavirus, please stay home and stay away from others as much as possible. Please maintain social distance of 6 feet if possible. You should not return to work until at least 3 days (72 hours) have passed since recovery of symptoms. This defined as resolution of fever without the use of fever reducing medicines and improvement in respiratory symptoms (e.g,, cough, shortness of breath) Isolation can end at least 5 days after symptom onset and after fever ends for 24 hours (without the use of fever-reducing medication) and symptoms are improving, if these people can continue to properly wear a well-fitted mask around others for 5 more days after the 5-day isolation period. If you're still having symptoms at the end of 5 day period, isolate for an additional 5 days. More information about what to do if you are sick can be found on the CDC website at https://www.cdc.gov/coronavirus/2019-ncov/kh-kot-ncu-sick/abhcu-bmbb-rzxr.html Expect the symptoms to last for 7-14 days from onset. Use acetaminophen (Tylenol) as needed for discomfort. You can take a maximum of 1 gram every 6 hours for discomfort, with your total dose in 24 hours not exceeding 4 grams. Be sure to maintain hydration. Drink continuous water and/or items high in vitamin C, such as orange juice and/or lemonade. Unless you have high blood pressure, you may consider Sudafed (which is [id number]) for nasal congestion. I would suggest that a short acting Sudafed rather than the 24 hour Sudafed. For a cough you may take Mucinex or Robitussin. Also consider the use of Vicks Vapor Rub or your chest when you sleep. Use a humidifier that is cleaned frequently, in the bedroom at night. For Nausea /Vomiting/Diarrhea associated with your Illness: o Small frequent sips of room temperature liquids. o Diet: Divide Foods - If you are still experiencing discomfort and/or nausea please slowly advancing your diet using the BRAT Diet = bananas, rice, apples/apple sauce, toast. o With diarrhea avoid any dairy for 48 hours after symptoms resolved. o Continue with activity as tolerated. If your symptoms do get worse and you believe that the upper respiratory infection has developed into something else, such as pneumonia or severe dehydration, please return to the emergency department or follow-up with your primary care. But expect to be symptomatic for the days as indicated above Prescriptions: Naproxen [Naprosyn] 375 mg PO Q12HR PRN #20 tablet PRN Reason: Pain Acetaminophen [Tylenol] 500 mg PO Q4-6H PRN #24 tab PRN Reason: Pain Is patient prescribed a controlled substance at d/c from ED?: No Referrals: Waqar Godwin [STAFF PHYSICIAN] - 07/20/21 Time of Disposition: 01:58
--- NOTE | 2021-07-18 01:01 | XR ---
EXAMINATION TYPE: XR chest 2V DATE OF EXAM: 07/18/2021 COMPARISON: 02/18/2021 HISTORY: Weakness TECHNIQUE: 2 views FINDINGS: Heart and mediastinum are normal. Lungs are clear. Diaphragm is normal. Bony thorax is inta ct. IMPRESSION: Normal chest. No change.
[2021-07-18 01:30] LABS: Basophils # (A) 0.1 k/uL (0-0.2); Basophils % (A) 1 %; Eosinophils # (A) 0.4 k/uL (0-0.7); Eosinophils % (A) 6 %; HCT 42.7 % (39.0-53.0); HGB 15.1 gm/dL (13.0-17.5); Lymphocytes % (A) 33 %; MCH 32.1 pg (25.0-35.0); MCHC 35.4 g/dL (31.0-37.0); MCV 90.5 fL (80.0-100.0); Mean Platelet Volume 7.8; Monocytes # (A) 0.3 k/uL (0-1.0); Monocytes % (A) 6 %; Neutrophils # (A) 3.2 k/uL (1.3-7.7); Neutrophils % (A) 53 %; Platelet Count 210 k/uL (150-450); RBC 4.72 m/uL (4.30-5.90); RDW 12.1 % (11.5-15.5)
[2021-07-18 01:39] LABS: African American GFR (CKD) >90 (>60 ml/min/1.73 sqM); Anion Gap 9 mmol/L; Blood Urea Nitrogen 14 mg/dL (9-20); Calcium 9.5 mg/dL (8.4-10.2); Carbon Dioxide 27 mmol/L (22-30); Chloride 103 mmol/L (98-107); Creatine Kinase 98 U/L (55-170); Glucose 93 mg/dL (74-99); Non-African American GFR(CKD) >90 (>60 ml/min/1.73 sqM); Potassium 3.9 mmol/L (3.5-5.1); Sodium 139 mmol/L (137-145)
== END 2021-07-18 02:26 | disposition home or self-care (01) ==
LOC: EC
DX: U07.1 COVID-19 (principal); F41.9 Anxiety disorder, unspecified; F17.210 Nicotine dependence, cigarettes, uncomplicated; J45.909 Unspecified asthma, uncomplicated; F12.90 Cannabis use, unspecified, uncomplicated; F32.A Depression, unspecified; Z79.899 Other long term (current) drug therapy
CPT/HCPCS: 36415; 71046; 80048; 82550; 83735; 84484; 85025; 85379; 93005; 99285

== ENCOUNTER 2021-07-29 07:15 | Emergency (ER) | payer OTHER ==
[2021-07-29 07:25] VITALS: TEMP 97.2
[2021-07-29] MEDS ORDERED: LORazepam 1 MG TAB PO STA (07:42)
--- NOTE | 2021-07-29 07:54 | ED ---
Anxiety HPI - General Chief Complaint: Anxiety Stated Complaint: Anxiety Time Seen by Provider: 07/29/21 07:31 Source: patient Mode of arrival: ambulatory - History of Present Illness Initial Comments: This is a 20 year old male with a PMHx of anxiety who reports to the emergency department for a reported panic attack. States that he has been having these almost daily for the past year. This one began about 4 hours ago and he has not been able to settle down, so he came to the emergency department. Nothing provoked this panic attack which is usually the case. He recently found a primary care provider who he saw one week ago. He had previously been unable to find one that will accept his insurance. 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 He is hoping to find a natural alternative. Denies any suicidal or homicidal ideations. Describes his panic a ttacks as chest pressure, shortness of breath, and feelings of impending doom. Symptoms are the same each time. MD Complaint: anxiety Onset/Timin -: hour(s) Place: home Quality: constant, similar to prior episodes Provoking factors: none known Improves With: nothing Associated symptoms: chest pain, shortness of breath, palpitations - Related Data Home Medications: Previous Rx's Medication Instructions Recorded busPIRone HCl [Buspar] 10 mg PO Q12H PRN #15 tab 07/11/21 Acetaminophen [Tylenol] 500 mg PO Q4-6H PRN #24 tab 07/18/21 Naproxen [Naprosyn] 375 mg PO Q12HR PRN #20 tablet 07/18/21 Allergies/Adverse Reactions: Allergies Allergy/AdvReac Type Severity Reaction Status Date / Time cetirizine [From [facility]] Allergy Unknown Verified 07/29/21 07:25 Review of Systems ROS Statement: Those systems with pertinent positive or pertinent negative responses have been documented in the HPI. ROS Other: All systems not noted in ROS Statement are negative. Constitutional: Denies: fever, chills Respiratory: Reports: dyspnea. Denies: cough Cardiovascular: Reports: chest pain, palpitations Gastrointestinal: Denies: abdominal pain, nausea, vomiting, diarrhea Genitourinary: Denies: urgency, dysuria Musculoskeletal: Denies: back pain Skin: Denies: rash, lesions Neurological: Denies: headache, weakness Psychiatric: Reports: anxiety. Denies: depression, auditory hallucinations, visual hallucinations, homicidal thoughts, suicidal thoughts Past Medical History Past Medical History: Asthma Additional Past Medical History / Comment(s): anxiety History of Any Multi-Drug Resistant Organisms: None Reported Past Surgical History: No Surgical Hx Reported Past Psychological History: Anxiety, Depression Smoking Status: Current every day smoker Past Alcohol Use History: Occasional Past Drug Use History: Marijuana General Exam Limitations: no limitations General appearance: alert, anxious, other (pacing around the room) Head exam: Present: atraumatic, normocephalic, normal inspection Respiratory exam: Present: normal lung sounds bilaterally. Absent: respiratory distress, wheezes, rales, rhonchi, stridor Cardiovascular Exam: Present: regular rate, normal rhythm, normal heart sounds. Absent: systolic murmur, diastolic murmur, rubs, gallop, clicks Neurological exam: Present: alert, oriented X3, CN II-XII intact Psychiatric exam: Present: anxious. Absent: homicidal ideation, suicidal ideation Skin exam: Present: warm, dry, intact, normal color. Absent: rash Course Vital Signs 07/29/21 07/29/21 07:22 09:49 Temperature 97.2 F L Pulse Rate 80 72 Respiratory 24 18 Rate Blood Pressure 124/66 120/60 O2 Sat by Pulse 97 Oximetry - Reevaluation(s) Time: 08:10 (Patient states that symptoms are improved with the Ativan, however he still has some lingering anxiety and chest pain.) Time: 08:51 (Patient resting comfortably. ) Medical Decision Making - Medical Decision Making This is a 20 year old male with a PMHx of anxiety who reports to the emergency department for feelings of a panic attack. 1mg Ativan provided. Patient experienced improvement in symptoms. No current suicidal or homicidal ideations. EPS not indicated at this time. Advised patient discuss preventative medication options with his primary care provider to prevent recurrent symptoms. Return precautions reviewed in depth, the patient is instructed to return to the emergency department if symptoms worsen or do not improve. Patient verbalized understanding. This case was discussed in detail with the attending ED physician. Presentation, findings, and treatment plan discussed in detail as well. - EKG Data EKG shows normal: sinus rhythm Rate: normal When compared to previous EKG there are: no significant change Interpretation: no acute changes Disposition Clinical Impression: Panic attack, Acute anxiety Disposition: HOME SELF-CARE Instructions (If sedation given, give patient instructions): Generalized Anxiety Disorder (ED), Panic Attack (ED) Additional Instructions: Return to the emergency department if symptoms worsen or do not improve. Discuss daily preventative medication options with primary care provider to avoid further panic attacks. Is patient prescribed a controlled substance at d/c from ED?: No Referrals: Waqar Godwin [Primary Care Provider] - 1-2 days
[2021-07-29 09:50] VITALS: BP 120/60; PULSE 72; RESP 18
== END 2021-07-29 09:49 | disposition home or self-care (01) ==
LOC: EC 07:15
DX: F41.0 Panic disorder [episodic paroxysmal anxiety] (principal); J45.909 Unspecified asthma, uncomplicated; F32.A Depression, unspecified; F41.9 Anxiety disorder, unspecified; F17.200 Nicotine dependence, unspecified, uncomplicated; F12.90 Cannabis use, unspecified, uncomplicated; Z79.899 Other long term (current) drug therapy
CPT/HCPCS: 93005; 99284

== ENCOUNTER 2021-09-20 10:17 | Emergency (ER) | payer OTHER ==
[2021-09-20 10:27] VITALS: RESP 18; TEMP 98.1
[2021-09-20] MEDS ORDERED: LORazepam 1 MG TAB PO STA (10:39)
--- NOTE | 2021-09-20 10:54 | ED ---
General Adult HPI - General Chief complaint: Chest Pain Stated complaint: Chest pain, anxiety Time Seen by Provider: 09/20/21 10:30 Source: patient Mode of arrival: ambulatory Limitations: no limitations - History of Present Illness Initial comments: Dictation was produced using [employer] dictation software. please excuse any grammatical, word or spelling errors. Chief Complaint: 20-year-old male past medical history of anxiety disorder presents to the emergency department for chest pain, clamminess of the hands History of Present Illness: 20-year-old male. He states she's been diagnosed with anxiety disorder in the past. She today after one hour of shakiness, chest pain and clamminess to the hands. Patient states he started having symptoms like this frequently for the last several months. He was seen by his primary care doctor regarding this and was told to start antidepressant medications. He states he hasn't been taking it because he doesn't like how it makes him feel and because his friends told him not to. Patient states he woke up in his usual state of health. Spent emergency department multiple times for urinary reaction to aspirin. Patient states he has some mild sharp dull chest pain to his left anterior chest. Nonradiating. No associated diaphoresis or nausea. States that he normally gets all of these symptoms with his panic attacks. The ROS documented in this emergency department record has been reviewed and confirmed by me. Those systems with pertinent positive or negative responses have been documented in the HPI. All other systems are other negative and/or noncontributory. PHYSICAL EXAM: General Impression: Alert and oriented x3, not in acute distress HEENT: Normocephalic atraumatic, extra-ocular movements intact, pupils equal and reactive to light bilaterally, mucous membranes moist. Cardiovascular: Heart regular rate and rhythm Chest: Able to complete full sentences, no retractions, no tachypnea Abdomen: abdomen soft, non-tender, non-distended, no organomegaly Musculoskeletal: Pulses present and equal in all extremities, no peripheral edema Motor: no focal deficits noted Neurological: CN II-XII grossly intact, no focal motor or sensory deficits noted Skin: Intact with no visualized rashes Psych: Normal affect and mood ED course: 20-year-old male presents to the emergency department for anxiety reaction. Signs upon arrival are within acceptable limits. EKG is unremarkable shows no signs of ischemia or infarction. Patient given angiolytics. He is reevaluated bedside at all 15 p.m. found to be in stable medical condition. Patient states his symptoms are completely resolved. EKG interpretation: Ventricular rate 89, sinus rhythm, [place] interval 161, QS 11, Q TC 396. No [place] prolongation, no QTC prolongation, no ST or T-wave changes noted. EKG compared to 07/29/2021 showing no changes. Overall, this EKG is unremarkable - Related Data Home Medications Medication Instructions Recorded Confirmed Omeprazole 20 mg PO DAILY PRN 09/20/21 09/20/21 Allergies Allergy/AdvReac Type Severity Reaction Status Date / Time cetirizine [From Zyrte] Allergy Unknown Verified 09/20/21 11:53 Review of Systems ROS Statement: Those systems with pertinent positive or pertinent negative responses have been documented in the HPI. ROS Other: All systems not noted in ROS Statement are negative. Past Medical History Past Medical History: Asthma Additional Past Medical History / Comment(s): anxiety History of Any Multi-Drug Resistant Organisms: None Reported Past Surgical History: No Surgical Hx Reported Past Psychological History: Anxiety, Depression Smoking Status: Current every day smoker Past Alcohol Use History: Occasional Past Drug Use History: Marijuana General Exam Limitations: no limitations Course Vital Signs 09/20/21 10:21 Temperature 98.1 F Pulse Rate 85 Respiratory 18 Rate Blood Pressure 123/70 O2 Sat by Pulse 100 Oximetry Disposition Clinical Impression: Anxiety reaction Disposition: HOME SELF-CARE Condition: Good Instructions (If sedation given, give patient instructions): Anxiety (ED) Is patient prescribed a controlled substance at d/c from ED?: No Referrals: Waqar Godwin [Primary Care Provider] - 1-2 days Time of Disposition: 12:17
[2021-09-20 12:27] VITALS: BP 120/70; PULSE 80
== END 2021-09-20 12:26 | disposition home or self-care (01) ==
LOC: EC 10:17
DX: F41.9 Anxiety disorder, unspecified (principal); F17.200 Nicotine dependence, unspecified, uncomplicated; F12.90 Cannabis use, unspecified, uncomplicated
CPT/HCPCS: 93005; 99284

== ENCOUNTER 2022-04-27 18:53 | Emergency (ER) | payer OTHER ==
[2022-04-27 18:59] VITALS: RESP 18
[2022-04-27] MEDS ORDERED: KETOROLAC 15 MG/ML 1 ML VIAL IVP STA (20:14)
[2022-04-27 20:25] LABS: Basophils % (A) 1 %; Eosinophils # (A) 0.4 k/uL (0-0.7); Eosinophils % (A) 5 %; HCT 44.4 % (39.0-53.0); HGB 15.8 gm/dL (13.0-17.5); Lymphocytes # (A) 1.8 k/uL (1.0-4.8); Lymphocytes % (A) 20 %; MCHC 35.5 g/dL (31.0-37.0); MCV 90.2 fL (80.0-100.0); Mean Platelet Volume 8.1; Monocytes # (A) 0.5 k/uL (0-1.0); Monocytes % (A) 6 %; Neutrophils % (A) 69 %; Platelet Count 218 k/uL (150-450); RBC 4.92 m/uL (4.30-5.90); RDW 12.4 % (11.5-15.5); WBC 8.7 k/uL (3.8-10.6)
[2022-04-27 20:40] LABS: ALT 63 U/L (4-49); AST 44 U/L (17-59); African American GFR (CKD) >90 (>60 ml/min/1.73 sqM); Albumin 4.5 g/dL (3.5-5.0); Alkaline Phosphatase 85 U/L (38-126); Anion Gap 7 mmol/L; Blood Urea Nitrogen 16 mg/dL (9-20); Calcium 9.4 mg/dL (8.4-10.2); Carbon Dioxide 28 mmol/L (22-30); Chloride 104 mmol/L (98-107); Glucose 95 mg/dL (74-99); Non-African American GFR(CKD) >90 (>60 ml/min/1.73 sqM); Potassium 4.2 mmol/L (3.5-5.1); Sodium 139 mmol/L (137-145); Total Bilirubin 0.6 mg/dL (0.2-1.3); Total Protein 7.2 g/dL (6.3-8.2)
[2022-04-27 20:41] LABS: Partial Thromboplastin Time 23.6 sec (22.0-30.0); Prothrombin Time 10.5 sec (9.0-12.0)
--- NOTE | 2022-04-27 21:13 | XR ---
EXAMINATION TYPE: XR chest 2V DATE OF EXAM: 04/27/2022 COMPARISON: 07/18/2021 HISTORY: Altered mental status TECHNIQUE: FINDINGS: Heart and mediastinum are normal. Lungs are clear. Diaphragm is normal. Bony thorax appears normal. IMPRESSION: Normal chest. No change.
--- NOTE | 2022-04-27 21:41 | ED ---
General Adult HPI - General Chief complaint: Arrhythmia/Palpitations Stated complaint: palpitations, nausea Time Seen by Provider: 04/27/22 19:07 Source: patient Mode of arrival: ambulatory Limitations: no limitations - History of Present Illness Initial comments: This is a 21-year-old male with a past medical history including previous anxiety presented to emergency department for palpitations. The patient stated that earlier today approximately 2 hours prior to arrival, he started to experience some nausea as well as palpitations. The patient did state that he is a past medical history including anxiety and anxiety attacks he did state that this felt similar. The patient stated that he had some substernal chest pain as well speaking to the emergency department for evaluation. The patient stated that this chest pain did not radiate and did not cause him to have any diaphoresis, nausea or vomiting. The patient was resting in bed comfortably without any further acute pain or distress. - Related Data Home Medications Medication Instructions Recorded Confirmed Omeprazole 20 mg PO DAILY PRN 09/20/21 09/20/21 Allergies Allergy/AdvReac Type Severity Reaction Status Date / Time cetirizine [From [facility]] Allergy Unknown Verified 04/27/22 18:59 Review of Systems ROS Statement: Those systems with pertinent positive or pertinent negative responses have been documented in the HPI. ROS Other: All systems not noted in ROS Statement are negative. Past Medical History Past Medical History: Asthma, GERD/Reflux Additional Past Medical History / Comment(s): anxiety History of Any Multi-Drug Resistant Organisms: None Reported Past Surgical History: No Surgical Hx Reported Past Psychological History: Anxiety, Depression Smoking Status: Current every day smoker Past Alcohol Use History: Occasional General Exam Limitations: no limitations General appearance: alert, in no apparent distress Head exam: Present: atraumatic, normocephalic Eye exam: Present: normal appearance, PERRL ENT exam: Present: normal exam, normal oropharynx, mucous membranes moist Neck exam: Present: normal inspection, full ROM Respiratory exam: Present: normal lung sounds bilaterally, other (Tenderness with palpation to the midsternal region) Cardiovascular Exam: Present: regular rate, normal rhythm, normal heart sounds GI/Abdominal exam: Present: soft, normal bowel sounds Extremities exam: Present: normal inspection, full ROM Back exam: Present: normal inspection, full ROM Neurological exam: Present: alert, oriented X3, CN II-XII intact Psychiatric exam: Present: normal affect, normal mood Skin exam: Present: warm, dry Course Vital Signs 04/27/22 04/27/22 04/27/22 18:56 19:31 21:07 Temperature 98.7 F Pulse Rate 103 H 84 84 Respiratory 18 18 18 Rate Blood Pressure 144/94 143/78 128/71 O2 Sat by Pulse 97 96 Oximetry EKG Findings - EKG Comments: EKG Findings:: EKG was obtained and read by myself and showed a rate of 90, MI interval of 176, QRS duration of 106 and QTC of 392. This EKG showed a normal sinus rhythm with no ST segment elevations or depressions noted. Medical Decision Making - Medical Decision Making The patient was seen and evaluated in the emergency department. On physical exam, the patient was resting in bed without any acute distress. Vital signs admission and within normal limits. Due to the nature the patient's complaints, laboratory workup as well as a chest x-ray was obtained. All laboratory workup was within normal limits including troponin. Chest x-ray was within normal limits and EKG was normal. The patient continued to remain stable and did not have any further episodes of chest pain. The patient had reproducible pain on palpation to the sternal region and was given Toradol. On reevaluation, the patient stated that his pain was improved and he likely had an anxiety reaction as a cause of his chest pain. The patient was deemed to for discharge and told to follow-up with his primary care physician for further workup and evaluation. The patient was agreeable to this and all of his questions were answered. The p cheryl was discharged home in stable condition. - Lab Data Result diagrams: 04/27/22 20:07 04/27/22 20:07 Lab Results 04/27/22 04/27/22 04/27/22 Range/Units 20:07 20:07 20:07 WBC 8.7 (3.8-10.6) k/uL RBC 4.92 (4.30-5.90) m/uL Hgb 15.8 (13.0-17.5) gm/dL Hct 44.4 (39.0-53.0) % MCV 90.2 (80.0-100.0) fL MCH 32.0 (25.0-35.0) pg MCHC 35.5 (31.0-37.0) g/dL RDW 12.4 (11.5-15.5) % Plt Count 218 (150-450) k/uL MPV 8.1 Neutrophils % 69 % Lymphocytes % 20 % Monocytes % 6 % Eosinophils % 5 % Basophils % 1 % Neutrophils # 6.0 (1.3-7.7) k/uL Lymphocytes # 1.8 (1.0-4.8) k/uL Monocytes # 0.5 (0-1.0) k/uL Eosinophils # 0.4 (0-0.7) k/uL Basophils # 0.0 (0-0.2) k/uL PT 10.5 (9.0-12.0) sec INR 1.0 (<1.2) APTT 23.6 (22.0-30.0) sec Sodium 139 (137-145) mmol/L Potassium 4.2 (3.5-5.1) mmol/L Chloride 104 (98-107) mmol/L Carbon Dioxide 28 (22-30) mmol/L Anion Gap 7 mmol/L BUN 16 (9-20) mg/dL Creatinine 0.84 (0.66-1.25) mg/dL Est GFR (CKD-EPI)AfAm >90 (>60 ml/min/1.73 sqM) Est GFR (CKD-EPI)NonAf >90 (>60 ml/min/1.73 sqM) Glucose 95 (74-99) mg/dL Calcium 9.4 (8.4-10.2) mg/dL Magnesium 2.0 (1.6-2.3) mg/dL Total Bilirubin 0.6 (0.2-1.3) mg/dL AST 44 (17-59) U/L ALT 63 H (4-49) U/L Alkaline Phosphatase 85 (38-126) U/L Troponin I (0.000-0.034) ng/mL Total Protein 7.2 (6.3-8.2) g/dL Albumin 4.5 (3.5-5.0) g/dL 04/27/22 Range/Units 20:07 WBC (3.8-10.6) k/uL RBC (4.30-5.90) m/uL Hgb (13.0-17.5) gm/dL Hct (39.0-53.0) % MCV (80.0-100.0) fL MCH (25.0-35.0) pg MCHC (31.0-37.0) g/dL RDW (11.5-15.5) % Plt Count (150-450) k/uL MPV Neutrophils % % Lymphocytes % % Monocytes % % Eosinophils % % Basophils % % Neutrophils # (1.3-7.7) k/uL Lymphocytes # (1.0-4.8) k/uL Monocytes # (0-1.0) k/uL Eosinophils # (0-0.7) k/uL Basophils # (0-0.2) k/uL PT (9.0-12.0) sec INR (<1.2) APTT (22.0-30.0) sec Sodium (137-145) mmol/L Potassium (3.5-5.1) mmol/L Chloride (98-107) mmol/L Carbon Dioxide (22-30) mmol/L Anion Gap mmol/L BUN (9-20) mg/dL Creatinine (0.66-1.25) mg/dL Est GFR (CKD-EPI)AfAm (>60 ml/min/1.73 sqM) Est GFR (CKD-EPI)NonAf (>60 ml/min/1.73 sqM) Glucose (74-99) mg/dL Calcium (8.4-10.2) mg/dL Magnesium (1.6-2.3) mg/dL Total Bilirubin (0.2-1.3) mg/dL AST (17-59) U/L ALT (4-49) U/L Alkaline Phosphatase (38-126) U/L Troponin I <0.012 (0.000-0.034) ng/mL Total Protein (6.3-8.2) g/dL Albumin (3.5-5.0) g/dL Disposition Clinical Impression: Chest pain, Anxiety Disposition: HOME SELF-CARE Condition: Stable Instructions (If sedation given, give patient instructions): Heart Palpitations (ED), Anxiety (ED) Is patient prescribed a controlled substance at d/c from ED?: No Referrals: None,Stated [Primary Care Provider] - 1-2 days Time of Disposition: 21:45
[2022-04-27 22:02] VITALS: BP 117/59; PULSE 89; TEMP 98.8
== END 2022-04-27 22:01 | disposition home or self-care (01) ==
LOC: EC 18:53
DX: F41.9 Anxiety disorder, unspecified (principal); J45.909 Unspecified asthma, uncomplicated; K21.9 Gastro-esophageal reflux disease without esophagitis; F17.200 Nicotine dependence, unspecified, uncomplicated; Z88.8 Allergy status to other drugs, medicaments and biological substances
CPT/HCPCS: 36415; 71046; 80053; 83735; 84484; 85025; 85610; 85730; 93005; 99285

== ENCOUNTER → 2022-06-27 | Outpatient (CLI) | payer OTHER ==
--- NOTE | 2022-06-28 09:10 | FL ---
EXAMINATION TYPE: FL UGI air w esophagus DATE OF EXAM: 06/27/2022 COMPARISON: None HISTORY: Chest pain dizziness after eating, food getting stuck midesophagus TECHNIQUE: Double air contrast technique is utilized to evaluate the esophagus and upper GI system. FINDINGS: Esophagus dilates to normal caliber has normal contour gastroesophageal junction. Gastroesophageal ju nction opens to normal caliber. No intraluminal or extramural defects are evident. No reflux was elic ited. No secondary or tertiary contractions evident. There is incomplete stripping of the esophageal bolus in the horizontal drinking position. Fundus body and antrum of the stomach visualized are normal. Contrast readily empties into the normal ly positioned duodenal cap and sweep. Proximal small bowel loops within the [id number] are unremar kable. Images: 87 Fluoroscopy time: 51 seconds IMPRESSION: 1. Normal esophagram. 2. Normal upper GI.
--- NOTE | 2022-07-05 08:37 | HM ---
HOLTER MONITOR REPORT STUDY PERFORMED: A 24-hour Holter. INDICATION: Palpitations. Underlying rhythm is sinus with an average heart rate of 74 beats per minute. Heart rate varied from 42 beats per minute to 130 beats per minute. There were episodes of sinus tachycardia and sinus bradycardia. There were no episodes of atrial fibrillation or flutter. No significant ventricular ectopic rhythm. CONCLUSIONS: This 24-hour Holter reveals sinus rhythm with sinus bradycardia and sinus tachycardia. MMODL / IJN: [id number] /
== END | disposition home or self-care (01) ==
LOC: RADUSWWP 10:56
PROVIDERS: ATTEND Family Medicine
DX: I10 Essential (primary) hypertension (principal); F41.9 Anxiety disorder, unspecified; R00.1 Bradycardia, unspecified; R00.0 Tachycardia, unspecified; R07.9 Chest pain, unspecified; R55 Syncope and collapse; R42 Dizziness and giddiness; Z78.9 Other specified health status
CPT/HCPCS: 74246; 93225; 93226

== ENCOUNTER → 2022-07-03 | Outpatient (CLI) | payer OTHER ==
--- NOTE | 2022-07-03 16:31 | CA ---
Exercise Stress Test Report Name: Jose Francisco Flores Exam Date: 07/03/2022 11:10 Exam Location: [place] Ht (in): 68 Wt (lb): 290 BSA: 2.39 Ordering Phys: Timoteo Wadsworth MD Referring Phys: MOHIT, Technologist: Cornell Watson Age: 21 Gender: M : 2000 Procedure CPT: Indications: R07.9 chest pain R55 Syncope I10 HTN ICD-10 Codes: Patient History: chest pressure and short of breath Medications: Meds past 24 hrs: Pretest Chest Pain: STRESS TEST Tylor Protocol Exercise Duration (min:sec): 03:[address] Depressions (mm): Angina Score: Young Score: Resting HR (bpm): 71 Peak HR (bpm): 157 Resting BP (mmHg): 138 / 88 Peak BP (mmHg): 166 / 80 MPHR: 199 Target HR: 169 % MPHR: 79 METS: 5.0 Total Dose: Peak Dose: Atropine: Double Product: 43689 BP Response: Stress Termination: fatigue and short of breath. Chest pressure Stress Symptoms: Syncope., Fatigue., Dyspnea Stress Summary: ECG ANALYSIS Resting ECG: Normal sinus rhythm normal axis normal intervals Stress ECG: Patient exercised on Tylor protocol for 3 minutes achieving for mets 79% of predicted maximal heart rate without chest pain or diagnostic ST segment depression CONCLUSIONS Extremely poor exercise tolerance inconclusive EKG part of the stress test due to inability to attain target heart rate Dr. Colin Laughlin MD (Electronically Signed) Final Date: 03 July 2022 16:30
== END | disposition home or self-care (01) ==
LOC: RADNMMAIN 10:43
PROVIDERS: ATTEND Family Medicine
DX: I10 Essential (primary) hypertension (principal); R07.9 Chest pain, unspecified; R55 Syncope and collapse; R42 Dizziness and giddiness; F41.9 Anxiety disorder, unspecified; Z78.9 Other specified health status
CPT/HCPCS: 93017

== ENCOUNTER 2022-08-27 21:42 | Emergency (ER) | payer OTHER ==
[2022-08-27 22:03] VITALS: BP 159/91; PULSE 97; RESP 20; TEMP 98.3
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
== END 2022-08-27 22:17 | disposition home or self-care (01) ==
LOC: EC 21:42
DX: R04.0 Epistaxis (principal); J45.909 Unspecified asthma, uncomplicated; F17.200 Nicotine dependence, unspecified, uncomplicated; K21.9 Gastro-esophageal reflux disease without esophagitis; Z79.899 Other long term (current) drug therapy; Y04.8XXA Assault by other bodily force, initial encounter; Y92.238 Other place in hospital as the place of occurrence of the external cause; Y99.0 Civilian activity done for income or pay
CPT/HCPCS: 99282

== ENCOUNTER → 2023-07-21 | Outpatient (CLI) | payer OTHER ==
--- NOTE | 2023-07-21 18:40 | CT ---
EXAMINATION TYPE: CT brain wo con DATE OF EXAM: 07/21/2023 COMPARISON: 12/26/2020 HISTORY: HEADACHE AND BLURRED VISION X [address] DLP: 1219 mGycm. Automated Exposure Control for Dose Reduction was Utilized. TECHNIQUE: CT scan of the head is performed without contrast. FINDINGS: There is no acute intracranial hemorrhage, mass effect, or midline shift identified. The ventricles and sulci are within normal limits in size. The globes are intact and the visualized sin uses are clear. IMPRESSION: No acute intracranial hemorrhage, mass effect, or midline shift is seen. There is been n o interval change.
== END | disposition home or self-care (01) ==
LOC: RADCTMAIN 16:21
PROVIDERS: ATTEND Family Medicine
DX: H53.9 Unspecified visual disturbance (principal); R51.9 Headache, unspecified
CPT/HCPCS: 70450